=== PATIENT | female | born 1960 | race Caucasian/White ===

== ENCOUNTER → 2016-08-19 | Outpatient (CLI) | payer MEDICARE, MEDICAID ==
[~2016-08-19] MED LIST: ALPR1TAB2 PO; ATEN-104 PO; DIPH50CA PO; DOCU-30 PO; HYDR4TAB16 PO; LEVE100020 PO; METH4TAB PO; OMEP40CA6 PO; ONDA4TAB7 PO; SERT25TA PO; TEMA15CA PO
== END | disposition home or self-care (01) ==
LOC: CARD 08:44
PROVIDERS: ATTEND Psychiatry & Neurology Neurology
DX: R56.9 Unspecified convulsions (principal); J32.0 Chronic maxillary sinusitis
CPT/HCPCS: 70551; 95819

== ENCOUNTER 2016-09-29 16:49 | Inpatient (IN) | payer MEDICARE, MEDICAID ==
[~2016-09-29] VITALS: Ht 152.4 cm; Wt 65.2 kg
[~2016-09-29 16:49] MED LIST changes: +DOXE25CA PO; -HYDR4TAB16 PO; +HYDR4TAB48 PO
[2016-09-29] MEDS ORDERED: SODIUM CHLORIDE FLUSH 10ML SYR IVF ONE (17:30)
[2016-09-29] MEDS ORDERED: ONDANSETRON 2MG/ML, 2ML IVPush ONE ×2 (17:30→20:00)
[2016-09-29] MEDS ORDERED: SODIUM CHLORIDE 0.9% 1,000ML IVBOLUS ONE (17:30)
[2016-09-29 18:04] LABS: BLOOD UREA NITROGEN 28 mg/dL (7-18)
[2016-09-29] MEDS ORDERED: HYDROmorphone 1 MG/ML, 1ML ONE ×2 (18:14→19:14)
[2016-09-29] MEDS ORDERED: DIPHENHYDRAMINE 25 MG CAPSULE ONE ×2 (18:14→19:26)
[2016-09-29] MEDS ORDERED: ONDANSETRON 2MG/ML, 2ML ONE ×2 (18:15→20:22)
[2016-09-29] MEDS: HYDROmorphone 1 MG/ML, 1ML IVPush PRN ×2 (18:22→19:18)
[2016-09-29] MEDS ORDERED: DIPHENHYDRAMINE 25 MG CAPSULE PO ONE (19:00)
[2016-09-29] MEDS ORDERED: DEXTROSE 5% 1,000 ML IV SCH (19:30)
[2016-09-29] MEDS ORDERED: SODIUM CHLORIDE 0.9% 1,000 ML IV SCH (20:44)
[2016-09-29] MEDS: HYDROmorphone 4MG TABLET PO PRN (20:49)
[2016-09-29] MEDS ORDERED: POLYETHYLENE GLYCOL 17 GM PACKET PO PRN (21:00)
[2016-09-29] MEDS ORDERED: hydrALAzine 20 MG/ML, 1ML IVPush PRN (21:00)
[2016-09-29] MEDS: HEMIN IV SCH (21:00)
[2016-09-29] MEDS: LEVETIRACETAM 500 MG TABLET PO SCH (21:00)
[2016-09-29] MEDS ORDERED: BISACODYL 10 MG SUPP PR PRN (21:00)
[2016-09-29] MEDS ORDERED: LORazepam 2 MG/ML, 1ML IVPush PRN (21:00)
[2016-09-29] MEDS ORDERED: ACETAMINOPHEN 325 MG TABLET PO PRN (21:00)
[2016-09-29] MEDS ORDERED: ALPRazolam 1MG TABLET PO SCH (21:00)
[2016-09-29] MEDS ORDERED: TRAZODONE 50MG TABLET PO PRN (21:00)
[2016-09-29] MEDS ORDERED: DOCUSATE 100 MG CAPSULE PO PRN (21:00)
[2016-09-29] MEDS: D5%-0.45% NACL 1,000 ML IV SCH (21:59)
[2016-09-29 23:01] VITALS: BP 103/70
[2016-09-29] MEDS: HEPARIN 5,000 UNITS/ML, 1ML SQ SCH (23:59)
[2016-09-30] MEDS: LORazepam 1MG TABLET PO PRN ×5 (00:44→20:36)
[2016-09-30 02:17] VITALS: BP 94/63
[2016-09-30] MEDS: HYDROmorphone 4MG TABLET PO PRN ×4 (02:38→22:29)
[2016-09-30] MEDS: ONDANSETRON 2MG/ML, 2ML IVPush PRN ×4 (02:44→22:36)
[2016-09-30] MEDS: D5%-0.45% NACL 1,000 ML IV SCH ×4 (03:29→20:14)
[2016-09-30 06:00] LABS: ASPARTATE AMINO TRANSFERASE 14 U/L (15-37); BLOOD UREA NITROGEN 20 mg/dL (7-18)
[2016-09-30] MEDS: HEPARIN 5,000 UNITS/ML, 1ML SQ SCH ×3 (07:53→22:51)
[2016-09-30] MEDS: SERTRALINE 50MG TABLET PO SCH (07:58)
[2016-09-30] MEDS: LEVETIRACETAM 500 MG TABLET PO SCH ×2 (07:58→20:13)
[2016-09-30 08:30] VITALS: BP 99/58
[2016-09-30] MEDS: HEMIN IV SCH (09:00)
[2016-09-30 13:28] VITALS: BP 95/66
[2016-09-30 18:32] VITALS: BP 105/63
[2016-10-01] MEDS: D5%-0.45% NACL 1,000 ML IV SCH ×2 (01:36→07:18)
[2016-10-01 03:58] VITALS: BP 114/74
[2016-10-01] MEDS: HYDROmorphone 4MG TABLET PO PRN ×4 (04:15→23:07)
[2016-10-01] MEDS: LORazepam 1MG TABLET PO PRN ×4 (04:15→19:45)
[2016-10-01 07:12] VITALS: BP 107/73
[2016-10-01] MEDS: HEMIN IV SCH (09:00)
[2016-10-01] MEDS: HEPARIN 5,000 UNITS/ML, 1ML SQ SCH ×3 (10:13→23:07)
[2016-10-01] MEDS: SERTRALINE 50MG TABLET PO SCH (10:14)
[2016-10-01] MEDS: ONDANSETRON 2MG/ML, 2ML IVPush PRN ×2 (10:14→17:16)
[2016-10-01] MEDS: LEVETIRACETAM 500 MG TABLET PO SCH ×2 (10:15→21:58)
[2016-10-01 13:18] VITALS: BP 138/77
[2016-10-01] MEDS ORDERED: CALCIUM CARBONATE 500 MG TAB.CHEW PO PRN (15:00)
[2016-10-01] MEDS: PHENAZOPYRIDINE 100 MG TABLET PO SCH ×2 (17:17→21:58)
[2016-10-01] MEDS ORDERED: HYDROmorphone 4MG TABLET ONE (18:06)
[2016-10-01 18:44] VITALS: BP 146/88
[2016-10-01] MEDS ORDERED: HYDROmorphone 4MG TABLET PO PRN (21:00)
[2016-10-02] MEDS: LORazepam 1MG TABLET PO PRN ×6 (00:34→21:59)
[2016-10-02] MEDS: HYDROmorphone 4MG TABLET PO PRN ×4 (04:00→19:58)
[2016-10-02] MEDS: D5%-0.45% NACL 1,000 ML IV SCH ×2 (04:02→14:36)
[2016-10-02 04:11] VITALS: BP 107/63
[2016-10-02] MEDS: HEPARIN 5,000 UNITS/ML, 1ML SQ SCH ×2 (06:29→16:51)
[2016-10-02 07:42] VITALS: BP 125/82
[2016-10-02] MEDS: ONDANSETRON 2MG/ML, 2ML IVPush PRN ×3 (08:39→19:58)
[2016-10-02] MEDS: OMEPRAZOLE 20 MG CAPSULE.DR PO SCH (08:39)
[2016-10-02] MEDS: HEMIN IV SCH (09:00)
[2016-10-02] MEDS: LEVETIRACETAM 500 MG TABLET PO SCH ×2 (09:17→21:03)
[2016-10-02] MEDS: PHENAZOPYRIDINE 100 MG TABLET PO SCH ×3 (09:17→21:03)
[2016-10-02] MEDS: SERTRALINE 50MG TABLET PO SCH (09:17)
[2016-10-02 12:57] VITALS: BP 138/80
[2016-10-02 20:07] VITALS: BP 143/85
[2016-10-03 00:58] VITALS: BP 149/85
[2016-10-03] MEDS: HYDROmorphone 4MG TABLET PO PRN ×3 (01:06→12:00)
[2016-10-03] MEDS: D5%-0.45% NACL 1,000 ML IV SCH ×2 (01:07→10:18)
[2016-10-03] MEDS: HEPARIN 5,000 UNITS/ML, 1ML SQ SCH ×2 (01:07→10:16)
[2016-10-03] MEDS: PROCHLORPERAZINE 5 MG/ML, 2ML IVPush PRN ×2 (02:26→10:17)
[2016-10-03] MEDS: LORazepam 1MG TABLET PO PRN ×3 (02:26→15:30)
[2016-10-03 07:28] VITALS: BP 113/72
[2016-10-03] MEDS: SERTRALINE 50MG TABLET PO SCH (08:02)
[2016-10-03] MEDS: PHENAZOPYRIDINE 100 MG TABLET PO SCH ×2 (08:02→15:30)
[2016-10-03] MEDS: LEVETIRACETAM 500 MG TABLET PO SCH (08:02)
[2016-10-03] MEDS: OMEPRAZOLE 20 MG CAPSULE.DR PO SCH (08:02)
[2016-10-03] MEDS: HEMIN IV SCH (09:00)
[2016-10-03 13:56] VITALS: BP 140/92
[2016-10-08 12:06] LABS: COPROPORPHYRIN (CP) I 4 ug/L (0-15); COPROPORPHYRIN (CP) III 10 ug/L (0-49); HEPTACARBOXYL (7-CP) <1 ug/L (0-2); HEXACARBOXYL (6-CP) 1 ug/L (0-1); PENTACARBOXYL (5-CP) 1 ug/L (0-2); UROPORPHYRINS (UP) 3 ug/L (0-20)
== END 2016-10-03 17:00 | disposition home or self-care (01) | DRG 642 ==
LOC: ED 19:32 → EDIP 19:42 → 3NE 21:45
PROVIDERS: ADMIT Internal Medicine; ATTEND Family Medicine
DX: E80.21 Acute intermittent (hepatic) porphyria (principal); F11.20 Opioid dependence, uncomplicated; F13.20 Sedative, hypnotic or anxiolytic dependence, uncomplicated; N39.0 Urinary tract infection, site not specified; G89.29 Other chronic pain; R10.30 Lower abdominal pain, unspecified; F17.210 Nicotine dependence, cigarettes, uncomplicated; F41.1 Generalized anxiety disorder; I12.9 Hypertensive chronic kidney disease with stage 1 through stage 4 chronic kidney disease, or unspecified chronic kidney disease; K21.9 Gastro-esophageal reflux disease without esophagitis; N18.3 Chronic kidney disease, stage 3 (moderate); Z80.0 Family history of malignant neoplasm of digestive organs; Z86.73 Personal history of transient ischemic attack (TIA), and cerebral infarction without residual deficits; I25.2 Old myocardial infarction; Z86.74 Personal history of sudden cardiac arrest; Z88.2 Allergy status to sulfonamides; Z88.8 Allergy status to other drugs, medicaments and biological substances; Z71.6 Tobacco abuse counseling
CPT/HCPCS: 36415; 80048; 80053; 81003; 82040; 82436; 82550; 82570; 83735; 84110; 84120; 84133; 84300; 84439; 84443; 85025; J1170; J1644; J2405; J7070; J0780; J7030; Q0163

== ENCOUNTER 2016-10-28 18:23 | Emergency (ER) | payer MEDICARE, MEDICAID ==
[~2016-10-28] VITALS: Ht 152.4 cm; Wt 63.1 kg
[2016-10-28] MEDS ORDERED: SODIUM CHLORIDE 0.9% 1,000 ML IV ONE (18:40)
[2016-10-28] MEDS ORDERED: ONDANSETRON 2MG/ML, 2ML IVPush ONE (19:00)
[2016-10-28] MEDS ORDERED: SODIUM CHLORIDE 0.9% 1,000ML IVBOLUS ONE (19:00)
[2016-10-28] MEDS ORDERED: MORPHINE SULFATE 4 MG/ML, 1ML IVPush PRN (19:00)
[2016-10-28 19:15] LABS: ASPARTATE AMINO TRANSFERASE 17 U/L (15-37); BLOOD UREA NITROGEN 17 mg/dL (7-18)
[2016-10-28] MEDS ORDERED: MORPHINE SULFATE 4 MG/ML, 1ML ONE (19:53)
[2016-10-28] MEDS ORDERED: ONDANSETRON 2MG/ML, 2ML ONE (19:53)
[2016-10-28] MEDS ORDERED: HYDROmorphone 1 MG/ML, 1ML ONE (21:01)
[2016-10-28] MEDS ORDERED: HYDROmorphone 1 MG/ML, 1ML IV ONE (21:30)
[2016-10-28 21:55] VITALS: BP 119/72
== END 2016-10-28 21:57 | disposition home or self-care (01) ==
LOC: ED 21:42
DX: R10.84 Generalized abdominal pain (principal); M79.662 Pain in left lower leg; M79.661 Pain in right lower leg; I10 Essential (primary) hypertension; F17.200 Nicotine dependence, unspecified, uncomplicated; K21.9 Gastro-esophageal reflux disease without esophagitis; I25.2 Old myocardial infarction
CPT/HCPCS: 36415; 80053; 81003; 83690; 85025; 96361; 96374; 96375; 99285; J1170; J2405; J7030

== ENCOUNTER 2017-03-12 08:09 | Day surgery (SDC) | payer MEDICARE, MEDICAID ==
[~2017-03-12] VITALS: Ht 152.4 cm; Wt 67.2 kg
[~2017-03-12 08:09] MED LIST changes: +DOCU-131 PO; -DOCU-30 PO
[2017-03-12] MEDS ORDERED: SODIUM CHLORIDE 0.9% 1,000 ML IV SCH (08:37)
[2017-03-12 09:13] VITALS: BP 109/76
[2017-03-12] MEDS ORDERED: LIDOCAINE 1%, 20ML ONE ×2 (09:27→09:55)
[2017-03-12] MEDS ORDERED: MIDAZOLAM 1 MG/ML, 5ML ONE (10:03)
[2017-03-12] MEDS ORDERED: FENTANYL PF 100 MCG/2ML ONE (10:03)
[2017-03-12] MEDS ORDERED: CEFAZOLIN PMX 1GM/50ML 50 ML ONE (10:04)
== END 2017-03-12 12:45 ==
LOC: OUT 08:09
PROVIDERS: ATTEND Internal Medicine Hematology & Oncology
DX: Z45.2 Encounter for adjustment and management of vascular access device (principal); E80.21 Acute intermittent (hepatic) porphyria; I10 Essential (primary) hypertension; Z88.1 Allergy status to other antibiotic agents; Z88.8 Allergy status to other drugs, medicaments and biological substances
CPT/HCPCS: 36561; 76937; 77001; 99156; 99157; C1788; J7030; J0690; J2250; J3010; J3490; J1642

== ENCOUNTER 2017-09-05 07:35 | Inpatient (IN) | payer MEDICARE, MEDICAID ==
[~2017-09-05] VITALS: Ht 152.4 cm; Wt 70.5 kg
[~2017-09-05 07:35] MED LIST changes: +SERT50TA PO
[2017-09-05] MEDS ORDERED: HYDROmorphone 2 MG/ML, 1ML ONE (07:56)
[2017-09-05] MEDS ORDERED: HYDROmorphone 1 MG/ML, 1ML IV ONE (08:00)
[2017-09-05] MEDS ORDERED: SODIUM CHLORIDE FLUSH 10ML SYR IVF ONE (08:00)
[2017-09-05 08:09] LABS: BASOPHILS # (AUTO) 0.02 x10^3/uL (0-0.1); BASOPHILS % (AUTO) 0 % (0-1); EOSINOPHILS # (AUTO) 0.01 x10^3/uL (0-0.4); EOSINOPHILS % (AUTO) 0 % (1-7); LYMPHOCYTES # (AUTO) 1.18 x10^3/uL (1-3.4); LYMPHOCYTES % (AUTO) 28 % (22-44); MD NO; MEAN CORPUSCULAR HGB CONC 34.5 g/dL (32.4-35.8); MEAN CORPUSCULAR VOLUME 86.9 fL (80-100); MEAN PLATELET VOLUME 8.4 fL (7.4-10.4); MONOCYTES # (AUTO) 0.35 x10^3/uL (0.2-0.8); MONOCYTES % (AUTO) 8 % (2-9); NEUTROPHILS % (AUTO) 63 % (42-75); PLATELET COUNT 288 x10^3/uL (130-400); RED BLOOD COUNT 4.33 x10^6/uL (3.82-5.3); RED CELL DISTRIBUTION WIDTH 13.4 % (9.6-15.2)
[2017-09-05 08:22] LABS: ALANINE AMINOTRANSFERASE 25 U/L (12-78); ALBUMIN 4.1 g/dL (3.4-5.0); ANION GAP 9 mmol/L (5-15); CALCIUM 8.5 mg/dL (8.5-10.1); CHLORIDE 101 mmol/L (98-107)
[2017-09-05 08:26] LABS: ALKALINE PHOSPHATASE 75 U/L (45-117); BILIRUBIN,TOTAL 0.6 mg/dL (0.2-1.0); TOTAL PROTEIN 7.6 g/dL (6.4-8.2); TROPONIN I < 0.015 ng/mL (0.000-0.045)
[2017-09-05] MEDS ORDERED: ONDANSETRON ODT 4 MG ONE (08:55)
[2017-09-05] MEDS ORDERED: LORazepam 2 MG/ML, 1ML ONE (08:55)
[2017-09-05] MEDS ORDERED: ONDANSETRON ODT 4 MG PO ONE (09:00)
[2017-09-05] MEDS ORDERED: LORazepam 2 MG/ML, 1ML IVPush ONE (09:00)
[2017-09-05] MEDS ORDERED: ONDANSETRON 2MG/ML, 2ML IVPush PRN (10:00)
[2017-09-05] MEDS ORDERED: POLYETHYLENE GLYCOL 17 GM PACKET PO PRN (10:00)
[2017-09-05] MEDS ORDERED: LABETALOL 5MG/ML, 20ML IVPush PRN (10:00)
[2017-09-05] MEDS ORDERED: SODIUM CHLORIDE FLUSH 10ML SYR IVF PRN (10:00)
[2017-09-05 10:19] LABS: TROPONIN I < 0.015 ng/mL (0.000-0.045)
[2017-09-05 10:40] VITALS: BP 142/77
[2017-09-05] MEDS: MORPHINE SULFATE 4 MG/ML, 1ML IVPush PRN ×3 (11:22→18:44)
[2017-09-05] MEDS: SODIUM CHLORIDE 0.9% 1,000 ML IV SCH (11:22)
[2017-09-05] MEDS: ENOXAPARIN 40 MG/0.4 ML SQ SCH (11:22)
[2017-09-05 12:51] VITALS: BP 137/89
[2017-09-05] MEDS: ONDANSETRON ODT 4 MG PO PRN ×2 (13:05→17:07)
[2017-09-05] MEDS: ALPRazolam 1MG TABLET PO SCH ×2 (14:58→21:18)
[2017-09-05] MEDS ORDERED: ASPIRIN 325 MG TABLET PO ONE (16:00)
[2017-09-05 16:52] LABS: TROPONIN I < 0.015 ng/mL (0.000-0.045)
[2017-09-05] MEDS: HYDROmorphone 4MG TABLET PO PRN (17:07)
[2017-09-05] MEDS: SERTRALINE 50MG TABLET PO SCH (21:00)
[2017-09-05] MEDS ORDERED: SERTRALINE 100MG TABLET ONE (21:09)
[2017-09-05] MEDS: LEVETIRACETAM 500 MG TABLET PO SCH (21:18)
[2017-09-05 21:22] VITALS: BP 134/68
[2017-09-05] MEDS ORDERED: KETOROLAC 30 MG/1 ML IVPush ONE (22:30)
[2017-09-06] MEDS: MORPHINE SULFATE 4 MG/ML, 1ML IVPush PRN ×4 (00:01→14:10)
[2017-09-06] MEDS: SODIUM CHLORIDE 0.9% 1,000 ML IV SCH ×2 (00:05→14:10)
[2017-09-06 01:49] VITALS: BP 128/76
[2017-09-06] MEDS: HYDROmorphone 4MG TABLET PO PRN ×2 (02:03→11:53)
[2017-09-06] MEDS: ONDANSETRON ODT 4 MG PO PRN ×3 (02:03→16:26)
[2017-09-06] MEDS: ASPIRIN 81 MG TABLET EC PO SCH (05:09)
[2017-09-06 05:43] LABS: BASOPHILS # (AUTO) 0.03 x10^3/uL (0-0.1); BASOPHILS % (AUTO) 1 % (0-1); EOSINOPHILS # (AUTO) 0.11 x10^3/uL (0-0.4); EOSINOPHILS % (AUTO) 3 % (1-7); LYMPHOCYTES % (AUTO) 49 % (22-44); MD NO; MEAN CORPUSCULAR HEMOGLOBIN 30.3 pg (27.0-34.8); MEAN CORPUSCULAR HGB CONC 34.5 g/dL (32.4-35.8); MEAN CORPUSCULAR VOLUME 87.7 fL (80-100); MEAN PLATELET VOLUME 8.4 fL (7.4-10.4); MONOCYTES % (AUTO) 11 % (2-9); NEUTROPHILS # (AUTO) 1.64 x10^3/uL (1.8-6.8); NEUTROPHILS % (AUTO) 37 % (42-75); PLATELET COUNT 280 x10^3/uL (130-400); RED BLOOD COUNT 4.17 x10^6/uL (3.82-5.3)
[2017-09-06 05:44] LABS: CHLORIDE 108 mmol/L (98-107)
[2017-09-06 05:49] LABS: ALANINE AMINOTRANSFERASE 24 U/L (12-78); ALBUMIN 3.7 g/dL (3.4-5.0); ALKALINE PHOSPHATASE 66 U/L (45-117); ANION GAP 9 mmol/L (5-15); BILIRUBIN,TOTAL 0.8 mg/dL (0.2-1.0); CALCIUM 8.1 mg/dL (8.5-10.1); CREATININE 0.99 mg/dL (0.55-1.02); TOTAL PROTEIN 6.9 g/dL (6.4-8.2)
[2017-09-06 06:59] VITALS: BP 121/70
[2017-09-06] MEDS ORDERED: REGADENOSON 0.4 MG/5 ML SYRINGE ONE (07:44)
[2017-09-06] MEDS: OMEPRAZOLE 20 MG CAPSULE.DR PO SCH (09:54)
[2017-09-06] MEDS: ALPRazolam 1MG TABLET PO SCH ×3 (09:54→20:01)
[2017-09-06] MEDS: LEVETIRACETAM 500 MG TABLET PO SCH ×2 (09:54→20:01)
[2017-09-06] MEDS: SENNA/DOCUSATE TABLET PO SCH (10:02)
[2017-09-06] MEDS: ENOXAPARIN 40 MG/0.4 ML SQ SCH (11:53)
[2017-09-06 12:02] VITALS: BP 125/77
[2017-09-06] MEDS ORDERED: SERTRALINE 100MG TABLET ONE (19:36)
[2017-09-06 19:41] VITALS: BP 119/74
[2017-09-06] MEDS: SERTRALINE 50MG TABLET PO SCH (20:01)
[2017-09-07 01:47] VITALS: BP 120/86
[2017-09-07] MEDS: SODIUM CHLORIDE 0.9% 1,000 ML IV SCH (03:45)
[2017-09-07] MEDS: HYDROmorphone 4MG TABLET PO PRN ×2 (03:50→09:59)
[2017-09-07] MEDS: ONDANSETRON ODT 4 MG PO PRN (04:53)
[2017-09-07 05:12] LABS: ALBUMIN 3.6 g/dL (3.4-5.0); ANION GAP 8 mmol/L (5-15); CALCIUM 8.6 mg/dL (8.5-10.1); CHLORIDE 109 mmol/L (98-107); CREATININE 1.02 mg/dL (0.55-1.02)
[2017-09-07 05:18] LABS: BASOPHILS # (AUTO) 0.04 x10^3/uL (0-0.1); BASOPHILS % (AUTO) 1 % (0-1); EOSINOPHILS # (AUTO) 0.22 x10^3/uL (0-0.4); EOSINOPHILS % (AUTO) 4 % (1-7); LYMPHOCYTES % (AUTO) 37 % (22-44); MD NO; MEAN CORPUSCULAR HGB CONC 33.6 g/dL (32.4-35.8); MEAN CORPUSCULAR VOLUME 89.3 fL (80-100); MEAN PLATELET VOLUME 8.8 fL (7.4-10.4); MONOCYTES # (AUTO) 0.58 x10^3/uL (0.2-0.8); MONOCYTES % (AUTO) 10 % (2-9); NEUTROPHILS # (AUTO) 2.68 x10^3/uL (1.8-6.8); NEUTROPHILS % (AUTO) 48 % (42-75); PLATELET COUNT 301 x10^3/uL (130-400); RED BLOOD COUNT 4.32 x10^6/uL (3.82-5.3); RED CELL DISTRIBUTION WIDTH 14.1 % (9.6-15.2)
[2017-09-07] MEDS: ASPIRIN 81 MG TABLET EC PO SCH (05:38)
[2017-09-07 08:00] VITALS: BP 108/73
[2017-09-07] MEDS: OMEPRAZOLE 20 MG CAPSULE.DR PO SCH (08:13)
[2017-09-07] MEDS: ALPRazolam 1MG TABLET PO SCH (08:13)
[2017-09-07] MEDS: SENNA/DOCUSATE TABLET PO SCH (08:13)
[2017-09-07] MEDS: LEVETIRACETAM 500 MG TABLET PO SCH (08:14)
== END 2017-09-07 10:40 | disposition home or self-care (01) | DRG 100 ==
LOC: ED 07:47 → EDIP 09:31 → 5SO 10:36 → DCLOUNGE 09-07 10:22
PROVIDERS: ADMIT Internal Medicine Pulmonary Disease; ATTEND Internal Medicine Pulmonary Disease
DX: G40.909 Epilepsy, unspecified, not intractable, without status epilepticus (principal); N17.0 Acute kidney failure with tubular necrosis; E80.21 Acute intermittent (hepatic) porphyria; F11.20 Opioid dependence, uncomplicated; K21.9 Gastro-esophageal reflux disease without esophagitis; F32.9 Major depressive disorder, single episode, unspecified; F17.210 Nicotine dependence, cigarettes, uncomplicated; F41.1 Generalized anxiety disorder; I12.9 Hypertensive chronic kidney disease with stage 1 through stage 4 chronic kidney disease, or unspecified chronic kidney disease; N18.3 Chronic kidney disease, stage 3 (moderate); I25.2 Old myocardial infarction; Z82.3 Family history of stroke; Z80.9 Family history of malignant neoplasm, unspecified; Z88.5 Allergy status to narcotic agent; Z86.73 Personal history of transient ischemic attack (TIA), and cerebral infarction without residual deficits; Z88.6 Allergy status to analgesic agent; Z88.2 Allergy status to sulfonamides; Z88.8 Allergy status to other drugs, medicaments and biological substances
CPT/HCPCS: 36415; 71045; 78452; 80048; 80053; 80177; 82040; 83735; 83880; 84100; 84439; 84443; 84484; 85025; 93005; 93017; 93306; J1170; J1650; J2785; Q0162; A9502; C9898; J2060; J7030

== ENCOUNTER 2018-04-17 00:43 | Inpatient (IN) | payer MEDICARE, MEDICAID ==
[~2018-04-17] VITALS: Ht 152.4 cm; Wt 70.0 kg
[~2018-04-17 00:43] MED LIST changes: +AZIT250T PO
[2018-04-17] MEDS ORDERED: ONDANSETRON 2MG/ML, 2ML IVPush ONE ×2 (01:30→03:30)
[2018-04-17] MEDS ORDERED: SODIUM CHLORIDE 0.9% 1,000ML IVBOLUS ONE (01:30)
[2018-04-17 01:33] LABS: BASOPHILS # (AUTO) 0.03 x10^3/uL (0-0.1); BASOPHILS % (AUTO) 0 % (0-1); EOSINOPHILS # (AUTO) 0.44 x10^3/uL (0-0.4); EOSINOPHILS % (AUTO) 6 % (1-7); LYMPHOCYTES # (AUTO) 1.87 x10^3/uL (1-3.4); LYMPHOCYTES % (AUTO) 25 % (22-44); MD NO; MEAN CORPUSCULAR HEMOGLOBIN 31.2 pg (27.0-34.8); MEAN CORPUSCULAR HGB CONC 35.3 g/dL (32.4-35.8); MEAN CORPUSCULAR VOLUME 88.5 fL (80-100); MEAN PLATELET VOLUME 8.4 fL (7.4-10.4); MONOCYTES # (AUTO) 0.62 x10^3/uL (0.2-0.8); MONOCYTES % (AUTO) 8 % (2-9); NEUTROPHILS # (AUTO) 4.39 x10^3/uL (1.8-6.8); NEUTROPHILS % (AUTO) 60 % (42-75); PLATELET COUNT 215 x10^3/uL (130-400); RED BLOOD COUNT 4.32 x10^6/uL (3.82-5.3); RED CELL DISTRIBUTION WIDTH 12.8 % (9.6-15.2)
[2018-04-17] MEDS ORDERED: ONDANSETRON 2MG/ML, 2ML ONE ×2 (01:39→03:23)
[2018-04-17] MEDS ORDERED: HYDROmorphone 2 MG/ML, 1ML ONE ×3 (01:40→03:22)
[2018-04-17 01:43] LABS: INTERNATIONAL NORMALIZED RATIO 1.01 (0.93-1.1); PROTHROMBIN TIME 10.7 Seconds (9.6-11.5)
[2018-04-17] MEDS: HYDROmorphone 2 MG/ML, 1ML IVPush PRN ×8 (01:44→22:19)
[2018-04-17 01:47] LABS: ALANINE AMINOTRANSFERASE 19 U/L (12-78); ALBUMIN 3.6 g/dL (3.4-5.0); ANION GAP 7 mmol/L (5-15); CALCIUM 8.5 mg/dL (8.5-10.1); CHLORIDE 108 mmol/L (98-107); CREATININE 1.14 mg/dL (0.55-1.02)
[2018-04-17 01:51] LABS: BILIRUBIN, DIRECT < 0.1 mg/dL (0.1-0.2); BILIRUBIN,INDIRECT 0.1 mg/dL (0.0-2.0); BILIRUBIN,TOTAL 0.2 mg/dL (0.2-1.0); TROPONIN I < 0.015 ng/mL (0.000-0.045)
[2018-04-17 01:52] LABS: ALKALINE PHOSPHATASE 77 U/L (45-117); TOTAL PROTEIN 7.1 g/dL (6.4-8.2)
[2018-04-17] MEDS ORDERED: OMNIPAQUE 350 MG/ML, 100ML BOTTLE ONE (02:00)
--- NOTE | 2018-04-17 02:03 | NUR ---
PIV STARTED AND PT MEDICATED FOR PAIN. FLUIDS RUNNING. PT TO CT.
--- NOTE | 2018-04-17 02:35 | NUR ---
UA SENT TO LAB
[2018-04-17 02:40] LABS: MICROSCOPIC AUTO
[2018-04-17 02:44] LABS: CULTURE INDICATED? NO
[2018-04-17] MEDS ORDERED: HYDROmorphone 2 MG/ML, 1ML IV ONE (03:30)
[2018-04-17 03:50] VITALS: BP 125/82
[2018-04-17] MEDS: HEPARIN 5,000 UNITS/ML, 1ML SQ SCH ×3 (05:32→21:25)
[2018-04-17] MEDS: OMEPRAZOLE 20 MG CAPSULE.DR PO SCH (05:33)
[2018-04-17] MEDS: ATENOLOL 50 MG TABLET PO SCH (05:33)
[2018-04-17] MEDS: SODIUM CHLORIDE 0.9% 1,000 ML IV SCH ×4 (05:36→22:11)
[2018-04-17] MEDS: LEVETIRACETAM 500 MG TABLET PO SCH ×2 (08:42→21:25)
[2018-04-17] MEDS: ALPRazolam 1MG TABLET PO SCH ×3 (08:42→21:25)
[2018-04-17] MEDS ORDERED: IRON SUCROSE COMPLEX 100MG/5ML IV SCH (09:00)
[2018-04-17] MEDS: ONDANSETRON 2MG/ML, 2ML IVPush PRN ×3 (09:03→22:20)
[2018-04-17 09:27] VITALS: BP 107/73
[2018-04-17] MEDS ORDERED: BISACODYL 10 MG SUPP PR PRN (12:00)
[2018-04-17] MEDS ORDERED: DOCUSATE 100 MG CAPSULE ONE (12:13)
[2018-04-17] MEDS: DOCUSATE 100 MG CAPSULE PO SCH (12:17)
[2018-04-17 15:54] VITALS: BP 112/78
[2018-04-17 19:28] VITALS: BP 115/72
[2018-04-17] MEDS ORDERED: SENNA/DOCUSATE TABLET PO PRN (21:00)
[2018-04-17] MEDS ORDERED: SERTRALINE 50MG TABLET PO SCH (21:00)
[2018-04-17] MEDS ORDERED: SENNA/DOCUSATE TABLET PO SCH (21:00)
[2018-04-17] MEDS: DIPHENHYDRAMINE 50 MG/ML, 1ML IVPush PRN (21:25)
[2018-04-18 02:25] VITALS: BP 115/73
[2018-04-18] MEDS: HYDROmorphone 2 MG/ML, 1ML IVPush PRN ×3 (02:30→09:55)
[2018-04-18 04:36] LABS: BASOPHILS # (AUTO) 0.03 x10^3/uL (0-0.1); BASOPHILS % (AUTO) 1 % (0-1); EOSINOPHILS # (AUTO) 0.34 x10^3/uL (0-0.4); EOSINOPHILS % (AUTO) 7 % (1-7); LYMPHOCYTES % (AUTO) 35 % (22-44); MD NO; MEAN CORPUSCULAR HEMOGLOBIN 31.2 pg (27.0-34.8); MEAN CORPUSCULAR HGB CONC 34.7 g/dL (32.4-35.8); MEAN CORPUSCULAR VOLUME 89.8 fL (80-100); MEAN PLATELET VOLUME 8.7 fL (7.4-10.4); MONOCYTES # (AUTO) 0.51 x10^3/uL (0.2-0.8); MONOCYTES % (AUTO) 10 % (2-9); NEUTROPHILS # (AUTO) 2.54 x10^3/uL (1.8-6.8); NEUTROPHILS % (AUTO) 49 % (42-75); PLATELET COUNT 163 x10^3/uL (130-400); RED BLOOD COUNT 3.72 x10^6/uL (3.82-5.3); RED CELL DISTRIBUTION WIDTH 13.2 % (9.6-15.2)
[2018-04-18 04:47] LABS: ANION GAP 5 mmol/L (5-15); CALCIUM 7.6 mg/dL (8.5-10.1); CHLORIDE 112 mmol/L (98-107); CREATININE 0.98 mg/dL (0.55-1.02)
[2018-04-18] MEDS: OMEPRAZOLE 20 MG CAPSULE.DR PO SCH (05:27)
[2018-04-18] MEDS: ATENOLOL 50 MG TABLET PO SCH (05:28)
[2018-04-18] MEDS: HEPARIN 5,000 UNITS/ML, 1ML SQ SCH ×3 (05:30→14:34)
[2018-04-18] MEDS: DIPHENHYDRAMINE 50 MG/ML, 1ML IVPush PRN (05:37)
[2018-04-18 06:40] VITALS: BP 122/79
[2018-04-18] MEDS: SODIUM CHLORIDE 0.9% 1,000 ML IV SCH ×2 (06:56→14:23)
[2018-04-18] MEDS: MAGNESIUM SULFATE PMX 2GM/50ML 50 ML IV ONE ×2 (08:00→08:59)
[2018-04-18] MEDS: LEVETIRACETAM 500 MG TABLET PO SCH (09:54)
[2018-04-18] MEDS: ALPRazolam 1MG TABLET PO SCH ×2 (09:54→15:44)
[2018-04-18] MEDS: DOCUSATE 100 MG CAPSULE PO SCH (09:54)
[2018-04-18] MEDS: ONDANSETRON 2MG/ML, 2ML IVPush PRN (10:01)
[2018-04-18 12:42] VITALS: BP 120/79
[2018-04-18] MEDS ORDERED: DIPHENHYDRAMINE 25 MG CAPSULE PO ONE (14:00)
[2018-04-18] MEDS ORDERED: HYDROmorphone 2MG TABLET PO ONE (15:30)
== END 2018-04-18 17:00 | disposition home or self-care (01) | DRG 642 ==
LOC: ED 02:23 → EDIP 03:13 → 3NW 03:37
PROVIDERS: ADMIT Hospitalist; ATTEND Hospitalist
DX: E80.1 Porphyria cutanea tarda (principal); G40.909 Epilepsy, unspecified, not intractable, without status epilepticus; K21.9 Gastro-esophageal reflux disease without esophagitis; I25.10 Atherosclerotic heart disease of native coronary artery without angina pectoris; I10 Essential (primary) hypertension; F17.200 Nicotine dependence, unspecified, uncomplicated; F41.9 Anxiety disorder, unspecified; I25.2 Old myocardial infarction; Z82.3 Family history of stroke; Z86.73 Personal history of transient ischemic attack (TIA), and cerebral infarction without residual deficits
CPT/HCPCS: 36415; 71045; 74177; 80048; 80053; 81001; 82247; 82248; 82728; 83540; 83550; 83690; 83735; 84100; 84484; 85025; 85610; 85730; 93005; 96374; 96375; 96376; G0378; J1170; J1644; J1756; J2405; Q9967; J1200; J3475; J7030; Q0163

== ENCOUNTER 2018-09-12 11:24 | Inpatient (IN) | payer MEDICARE, MEDICAID ==
[~2018-09-12] VITALS: Ht 152.4 cm; Wt 68.2 kg
--- NOTE | 2018-09-12 12:13 | NUR ---
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 PT AMB TO BR FOR URINE SPECIMAN.
[2018-09-12 12:16] LABS: BASOPHILS # (AUTO) 0.02 x10^3/uL (0-0.1); BASOPHILS % (AUTO) 1 % (0-1); EOSINOPHILS # (AUTO) 0.07 x10^3/uL (0-0.4); EOSINOPHILS % (AUTO) 2 % (1-7); LYMPHOCYTES # (AUTO) 1.57 x10^3/uL (1-3.4); LYMPHOCYTES % (AUTO) 36 % (22-44); MD NO; MEAN CORPUSCULAR HEMOGLOBIN 30.2 pg (27.0-34.8); MEAN CORPUSCULAR HGB CONC 33.6 g/dL (32.4-35.8); MEAN CORPUSCULAR VOLUME 89.9 fL (80-100); MEAN PLATELET VOLUME 8.6 fL (7.4-10.4); MONOCYTES % (AUTO) 7 % (2-9); NEUTROPHILS # (AUTO) 2.36 x10^3/uL (1.8-6.8); NEUTROPHILS % (AUTO) 55 % (42-75); PLATELET COUNT 284 x10^3/uL (130-400); RED BLOOD COUNT 4.88 x10^6/uL (3.82-5.3); RED CELL DISTRIBUTION WIDTH 13.9 % (9.6-15.2)
--- NOTE | 2018-09-12 12:16 | NUR ---
PT AMBULATED TO BR WITHOUT DIFFICULTY. INSTRUCTED ON CLEAN CATCH URINE SAMPLE.
[2018-09-12 12:26] LABS: ALANINE AMINOTRANSFERASE 26 U/L (12-78); ALBUMIN 4.5 g/dL (3.4-5.0); ANION GAP 11 mmol/L (5-15); CALCIUM 8.7 mg/dL (8.5-10.1); CHLORIDE 107 mmol/L (98-107); CREATININE 1.74 mg/dL (0.55-1.02)
[2018-09-12 12:29] LABS: ALKALINE PHOSPHATASE 78 U/L (45-117); BILIRUBIN,TOTAL 0.2 mg/dL (0.2-1.0); TOTAL PROTEIN 7.9 g/dL (6.4-8.2)
[2018-09-12 12:47] LABS: MICROSCOPIC INDICATED
[2018-09-12 12:51] LABS: CULTURE INDICATED? NO
[2018-09-12] MEDS ORDERED: SODIUM CHLORIDE FLUSH 10ML SYR IVF ONE (13:00)
[2018-09-12] MEDS ORDERED: ONDANSETRON 2MG/ML, 2ML IVPush ONE (13:00)
[2018-09-12] MEDS ORDERED: SODIUM CHLORIDE 0.9% 1,000ML IVBOLUS ONE (13:00)
[2018-09-12] MEDS ORDERED: HYDROmorphone 1 MG/ML, 1ML VIAL ONE ×2 (13:06→14:22)
[2018-09-12] MEDS ORDERED: ONDANSETRON 2MG/ML, 2ML ONE (13:06)
[2018-09-12] MEDS ORDERED: SODIUM CHLORIDE FLUSH 10ML SYR IVF PRN (13:30)
[2018-09-12] MEDS: HYDROmorphone 2 MG/ML, 1ML IVPush PRN ×2 (13:48→14:26)
[2018-09-12] MEDS ORDERED: DIPHENHYDRAMINE 12.5MG/5ML, 10ML UDC PO PRN (14:00)
[2018-09-12] MEDS ORDERED: hydrALAzine 20 MG/ML, 1ML IVPush PRN (14:00)
[2018-09-12] MEDS ORDERED: LIDODERM 5% PATCH TD PRN (14:00)
[2018-09-12] MEDS ORDERED: DOCUSATE 100 MG CAPSULE PO PRN (14:00)
[2018-09-12] MEDS: SODIUM CHLORIDE 0.9% 1,000 ML IV SCH ×2 (14:00→20:56)
[2018-09-12] MEDS ORDERED: POTASSIUM CHLORIDE 20 MEQ TAB.ER.PRT PO ONE (14:00)
[2018-09-12] MEDS ORDERED: HYDROmorphone 1 MG/ML, 1ML INJ IV PRN (14:00)
[2018-09-12] MEDS ORDERED: GUAIFENESIN/DM 200-20MG, 10ML UDC PO PRN (14:00)
--- NOTE | 2018-09-12 14:06 | NUR ---
PORT TO R [facility] ACCESSED. PT MEDICATED PER ORDERS AND IVF INFUSING. RV'WD POC WITH PT. PT UNDERSTANDS PLAN FOR ADMISSION.
--- NOTE | 2018-09-12 14:33 | NUR ---
PT MEDICATED FOR BACK, ABD, AND LEG PAIN WITH SECOND DOSE OF DILAUDID PER ORDERS. TRANSPORTED UP TO FLOOR [facility]IA [facility].
[2018-09-12 14:54] VITALS: BP 120/77
[2018-09-12] MEDS: ALPRazolam 1MG TAB PO SCH ×2 (15:34→20:56)
[2018-09-12] MEDS ORDERED: HYDROmorphone 2MG TABLET ONE (18:33)
[2018-09-12] MEDS: HYDROmorphone 4MG TABLET PO PRN (18:38)
[2018-09-12 19:49] VITALS: BP 114/72
[2018-09-12] MEDS: SERTRALINE 50MG TABLET PO SCH (20:56)
[2018-09-12] MEDS: LEVETIRACETAM 500 MG TABLET PO SCH (20:57)
[2018-09-12] MEDS: ONDANSETRON ODT 4 MG PO PRN (21:55)
[2018-09-13] MEDS: HYDROmorphone 2 MG/ML, 1ML IV PRN ×5 (00:14→23:24)
[2018-09-13 01:49] VITALS: BP 108/67
[2018-09-13 04:18] LABS: ANION GAP 6 mmol/L (5-15); CALCIUM 7.4 mg/dL (8.5-10.1); CHLORIDE 114 mmol/L (98-107); CREATININE 1.21 mg/dL (0.55-1.02)
[2018-09-13] MEDS: ONDANSETRON ODT 4 MG PO PRN ×4 (04:19→23:18)
[2018-09-13] MEDS: SODIUM CHLORIDE 0.9% 1,000 ML IV SCH ×3 (05:30→20:56)
[2018-09-13 07:17] VITALS: BP 108/66
[2018-09-13] MEDS: LEVETIRACETAM 500 MG TABLET PO SCH ×2 (08:34→20:52)
[2018-09-13] MEDS: ATENOLOL 50 MG TABLET PO SCH (08:34)
[2018-09-13] MEDS: ALPRazolam 1MG TAB PO SCH ×3 (08:34→20:52)
[2018-09-13] MEDS: OMEPRAZOLE 20 MG CAPSULE.DR PO SCH (08:34)
[2018-09-13] MEDS ORDERED: POTASSIUM CHLORIDE 20 MEQ TAB.ER.PRT PO ONE (11:30)
[2018-09-13 12:55] VITALS: BP 95/60
[2018-09-13] MEDS ORDERED: HYDROmorphone 2MG TABLET ONE (17:14)
[2018-09-13] MEDS: HYDROmorphone 4MG TABLET PO PRN (17:15)
[2018-09-13 18:57] VITALS: BP 121/69
[2018-09-13] MEDS: SERTRALINE 50MG TABLET PO SCH (20:52)
[2018-09-14 01:19] VITALS: BP 125/70
[2018-09-14] MEDS: SODIUM CHLORIDE 0.9% 1,000 ML IV SCH (05:40)
[2018-09-14] MEDS: HYDROmorphone 2 MG/ML, 1ML IV PRN (05:40)
[2018-09-14 07:12] VITALS: BP 121/74
[2018-09-14 08:24] LABS: ANION GAP 9 mmol/L (5-15); CALCIUM 7.8 mg/dL (8.5-10.1); CHLORIDE 114 mmol/L (98-107); CREATININE 0.87 mg/dL (0.55-1.02)
[2018-09-14] MEDS: OMEPRAZOLE 20 MG CAPSULE.DR PO SCH (08:42)
[2018-09-14] MEDS: ALPRazolam 1MG TAB PO SCH (08:43)
[2018-09-14] MEDS: LEVETIRACETAM 500 MG TABLET PO SCH (08:43)
[2018-09-14] MEDS: ATENOLOL 50 MG TABLET PO SCH (08:43)
[2018-09-14 10:04] LABS: MEAN CORPUSCULAR HEMOGLOBIN 29.9 pg (27.0-34.8); MEAN CORPUSCULAR HGB CONC 33.1 g/dL (32.4-35.8); MEAN CORPUSCULAR VOLUME 90.4 fL (80-100); MEAN PLATELET VOLUME 8.6 fL (7.4-10.4); PLATELET COUNT 218 x10^3/uL (130-400); RED BLOOD COUNT 3.87 x10^6/uL (3.82-5.3); RED CELL DISTRIBUTION WIDTH 13.7 % (9.6-15.2)
[2018-09-14 10:06] LABS: MD YES
[2018-09-14 10:08] LABS: BAND#(MANUAL) 0.04 x10^3/uL; BANDS%(MANUAL) 1 % (0-7); EOS% (MANUAL) 7 % (1-7); LYMPH#(MANUAL) 1.85 x10^3/uL (1-3.4); LYMPHS% (MANUAL) 43 % (22-44); MONOS#(MANUAL) 0.65 x10^3/uL (0.3-2.7); MONOS% (MANUAL) 15 % (2-9); REACTIVE LYMPHS # (MANUAL) 0.09 x10^3/uL (0-0); REACTIVE LYMPHS % (MANUAL) 2 % (0-0); SEG#(MANUAL) 1.38 x10^3/uL (1.8-6.8); SEGS% (MANUAL) 32 % (42-75)
[2018-09-14 10:09] LABS: <PLATELET ESTIMATE> ADEQUATE; <PLT MORPHOLOGY> NORMAL PLT MORPH; <RBC MORPHOLOGY> NORMAL
[2018-09-14] MEDS ORDERED: ONDA4TAB13 PO (10:10)
[2018-09-14] MEDS ORDERED: HYDROmorphone 2MG TABLET ONE (11:23)
[2018-09-14] MEDS: ONDANSETRON ODT 4 MG PO PRN (11:30)
[2018-09-14] MEDS: HYDROmorphone 4MG TABLET PO PRN (11:32)
== END 2018-09-14 13:20 | disposition home or self-care (01) | DRG 642 ==
LOC: ED 13:31 → EDIP 14:34 → 3NE 14:38 → DCLOUNGE 09-14 13:14
PROVIDERS: ADMIT Internal Medicine; ATTEND Internal Medicine
DX: E80.1 Porphyria cutanea tarda (principal); N17.0 Acute kidney failure with tubular necrosis; E87.2 Acidosis; E87.1 Hypo-osmolality and hyponatremia; E80.20 Unspecified porphyria; E86.0 Dehydration; F17.200 Nicotine dependence, unspecified, uncomplicated; G40.909 Epilepsy, unspecified, not intractable, without status epilepticus; E87.6 Hypokalemia; F41.9 Anxiety disorder, unspecified; K21.9 Gastro-esophageal reflux disease without esophagitis; I10 Essential (primary) hypertension; I25.2 Old myocardial infarction; Z86.73 Personal history of transient ischemic attack (TIA), and cerebral infarction without residual deficits; Z79.899 Other long term (current) drug therapy
CPT/HCPCS: 36415; 80048; 80053; 81001; 83735; 85025; 99291; G0378; J1170; J2405; Q0162; J7030

== ENCOUNTER 2018-11-06 11:45 | Emergency (ER) | payer MEDICARE, MEDICAID ==
[~2018-11-06] VITALS: Ht 152.4 cm; Wt 67.8 kg
[~2018-11-06 11:45] MED LIST changes: +ONDA4TAB13 PO
[2018-11-06] MEDS ORDERED: SODIUM CHLORIDE FLUSH 10ML SYR IVF ONE (12:00)
--- NOTE | 2018-11-06 12:23 | NUR ---
PATIENT PRESENTED TO ED WITH N/V AND MID ABD PAIN FOR 3-4 DAYS. PT PLACED IN ROOM AND PLACED ON BP, AND CONT. PUSLE OXIMETER. PT ASSISTED TO THE BR AND CLEAN CATCH URINE OBTAINED AND SENT TO LAB. ORDERS RECEIVED. PT REQUESTING PORTACATH TO BE ACCESSED FOR LAB DRAW. ASSESSMENT COMPLETED. CALL LIGHT IN REACH
[2018-11-06] MEDS ORDERED: HYDROmorphone 2MG TABLET ONE (12:45)
[2018-11-06 12:55] LABS: MICROSCOPIC INDICATED
--- NOTE | 2018-11-06 12:55 | NUR ---
PT BEGAN STATING " WHY ARE YOU NOT STARTING MY PORT, THEY ALWAYS GIVE ME DILAUDID BEFORE I GO UPSTAIRS, PT THEN BECAME UPSET WITH JOSE M RN AND BEGAN ARGUING WITH JOSE M EDMONDSON. AWARE. THEN STATED TO PATIENT "THAT IF SHE WAS GOING TO YELL AND USE BAD LANGUAGE TO THE NURSES THEN SHE CAN BE ESCORTED OUT." PT THEN BECAME CALM AND BECAME COOPERATIVE.
[2018-11-06] MEDS ORDERED: HYDROmorphone 2MG TABLET PO ONE (13:00)
--- NOTE | 2018-11-06 13:00 | NUR ---
PT ASKING FOR MORE DILAUDID AFTER GIVING PATIENT 2MG PO. PT THEN STATED " THIS WONT DO ANYTHING FOR ME, I TAKE 4MG AT HOME. " PT THEN ASKED, CAN I HAVE ATIVAN TOO TO HELP CALM ME DOWN. " MD AWARE.
[2018-11-06 13:03] LABS: BASOPHILS # (AUTO) 0.02 x10^3/uL (0-0.1); BASOPHILS % (AUTO) 1 % (0-1); EOSINOPHILS # (AUTO) 0.04 x10^3/uL (0-0.4); EOSINOPHILS % (AUTO) 1 % (1-7); LYMPHOCYTES # (AUTO) 1.25 x10^3/uL (1-3.4); LYMPHOCYTES % (AUTO) 34 % (22-44); MD NO; MEAN CORPUSCULAR HEMOGLOBIN 29.9 pg (27.0-34.8); MEAN CORPUSCULAR HGB CONC 33.8 g/dL (32.4-35.8); MEAN CORPUSCULAR VOLUME 88.6 fL (80-100); MEAN PLATELET VOLUME 8.4 fL (7.4-10.4); MONOCYTES # (AUTO) 0.36 x10^3/uL (0.2-0.8); MONOCYTES % (AUTO) 10 % (2-9); NEUTROPHILS # (AUTO) 2.06 x10^3/uL (1.8-6.8); NEUTROPHILS % (AUTO) 55 % (42-75); PLATELET COUNT 313 x10^3/uL (130-400); RED BLOOD COUNT 4.56 x10^6/uL (3.82-5.3); RED CELL DISTRIBUTION WIDTH 12.6 % (9.6-15.2)
[2018-11-06 13:04] LABS: CULTURE INDICATED? NO
[2018-11-06 13:13] LABS: ALANINE AMINOTRANSFERASE 30 U/L (12-78); ALBUMIN 4.3 g/dL (3.4-5.0); ANION GAP 10 mmol/L (5-15); CALCIUM 8.9 mg/dL (8.5-10.1); CHLORIDE 103 mmol/L (98-107)
[2018-11-06 13:17] LABS: ALKALINE PHOSPHATASE 99 U/L (45-117); BILIRUBIN,TOTAL 0.7 mg/dL (0.2-1.0); TOTAL PROTEIN 7.8 g/dL (6.4-8.2); TROPONIN I < 0.015 ng/mL (0.000-0.045)
--- NOTE | 2018-11-06 14:23 | NUR ---
PT RESTING IN BED AND COOPERATIVE AT THIS TIME.
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
[2018-11-06 15:14] VITALS: BP 122/78
== END 2018-11-06 15:16 | disposition home or self-care (01) ==
LOC: ED 13:29
DX: R11.2 Nausea with vomiting, unspecified (principal); R53.81 Other malaise; E80.20 Unspecified porphyria; R10.9 Unspecified abdominal pain; I10 Essential (primary) hypertension; G40.909 Epilepsy, unspecified, not intractable, without status epilepticus; K21.9 Gastro-esophageal reflux disease without esophagitis; I25.2 Old myocardial infarction; Z86.73 Personal history of transient ischemic attack (TIA), and cerebral infarction without residual deficits
CPT/HCPCS: 36415; 71045; 80053; 81001; 83605; 83690; 83880; 84484; 85025; 93005; 99284

== ENCOUNTER 2019-03-28 10:20 | Emergency (ER) | payer MEDICARE, MEDICAID ==
[~2019-03-28] VITALS: Ht 152.4 cm; Wt 71.2 kg
[~2019-03-28 10:20] MED LIST changes: +OMEP40CA42 PO; -OMEP40CA6 PO
[2019-03-28 10:26] VITALS: BP 128/83
--- NOTE | 2019-03-28 10:30 | NUR ---
BILATERAL EAR PAIN. HAS BEEN HURTING FOR SOME TIME BUT BECAME EXTREME THIS MORNING
== END 2019-03-28 11:31 | disposition home or self-care (01) ==
LOC: ED 11:20
DX: M26.623 Arthralgia of bilateral temporomandibular joint (principal); H60.93 Unspecified otitis externa, bilateral; I10 Essential (primary) hypertension; I25.2 Old myocardial infarction; K21.9 Gastro-esophageal reflux disease without esophagitis; G40.909 Epilepsy, unspecified, not intractable, without status epilepticus; Z86.73 Personal history of transient ischemic attack (TIA), and cerebral infarction without residual deficits; Z88.6 Allergy status to analgesic agent; Z88.8 Allergy status to other drugs, medicaments and biological substances; Z88.5 Allergy status to narcotic agent; Z88.2 Allergy status to sulfonamides
CPT/HCPCS: 99283